=== PATIENT | female | born 1980 | race Two or more races ===

== ENCOUNTER 2016-08-10 23:39 | Emergency (ER) | payer OTHER ==
[~2016-08-10] VITALS: Ht 165.1 cm; Wt 83.9 kg
[2016-08-11] VITALS: BP 140/73
[2016-08-11] MEDS ORDERED: TRAM-29 PO (00:14)
[2016-08-11] MEDS ORDERED: PENI500T PO (00:14)
[2016-08-11] MEDS ORDERED: PROAIR HFA8.5 GM INH (00:15)
--- NOTE | 2016-08-11 00:15 | PHYS DOC ---
Past Medical History Past Medical History: Asthma Past Surgical History: No Surgical History Additional Information: 1/2 PACK/DAY Alcohol Use: Occasionally Drug Use: Marijuana Adult General Chief Complaint Chief Complaint: Toothache HPI HPI Patient is a 36 year old female who presents with right maxillary dental pain starting yesterday. The affected tooth broke previously but just started to cause her pain yesterday. She reports that there was a knot above the tooth in the gums, but it drained some today. She denies any fevers. She sees a PCP at [facility]. She does not have a dentist. She also requests a refill of her albuterol inhaler. Review of Systems Review of Systems Constitutional: Denies fever or chills. [] Eyes: Denies change in visual acuity, redness, or eye pain. [] HENT: Denies ear pain, nasal congestion or sore throat. Reports dental pain and swelling. Respiratory: Denies cough or shortness of breath. [] Integument: Denies rash or skin lesions. [] Neurologic: Denies headache, focal weakness or sensory changes. [] Allergies Allergies Allergies Coded Allergies Type Severity Reaction Last Updated Verified hydrocodone Allergy Intermediate Itching 08/11/16 Yes Physical Exam Physical Exam Constitutional: Well developed, well nourished, no acute distress, non-toxic appearance. [] HENT: Normocephalic, atraumatic, bilateral external ears normal, oropharynx moist, no oral exudates, nose normal. Bilateral TMs without erythema or bulging. There is no posterior pharyngeal erythema or tonsillar edema. Tooth #4 is broken and tender without gingival edema or abscess. Eyes: PERRLA, EOMI, conjunctiva normal, no discharge. [] Skin: Warm, dry, no erythema, no rash. [] Neurologic: Alert and oriented X 3, normal motor function, normal sensory function, no focal deficits noted. [] Psychologic: Affect normal, judgement normal, mood normal. [] Current Patient Data Vital Signs Vital Signs Date Time Temp Pulse Resp B/P Pulse Ox O2 Delivery O2 Flow Rate FiO2 08/11/16 00:00 98.2 72 18 99 Room Air 98.2 EKG EKG [] Radiology/Procedures Radiology/Procedures [] Course & Med Decision Making Course & Med Decision Making Pertinent Labs and Imaging studies reviewed. (See chart for details) [] Dragon Disclaimer Dragon Disclaimer This electronic medical record was generated, in whole or in part, using a voice recognition dictation system. Departure Departure Impression: Primary Impression: Dentalgia Disposition: 01 HOME, SELF-CARE Condition: STABLE Referrals: UNKNOWN PCP NAME (PCP) Patient Instructions: Dental Pain, [id number] Additional Instructions: Please complete all of the prescribed antibiotics, even if your tooth is better. Please take the prescribed pain medication as directed. Do not drive or operate heavy machinery while taking pain medication. Please follow up with the dentist of your choice as soon as possible regarding your tooth. Return to the emergency department if you have any new or concerning symptoms. Scripts Albuterol Sulfate (Proair Hfa Inhaler)8.5 Gm Hfa.aer.ad1 Puff INH Q4HRS PRN SHORTNESS OF BREATH #1 INHALER Prov:BELKIS MEDEL 08/11/16 Tramadol Hcl (Ultram)50 Mg Xkyiix20 Mg PO Q6H PRN PAIN #20 TAB Prov:BELKIS MEDEL 08/11/16 Penicillin V Potassium 500 Mg Tablet1 Tab PO TID #30 TAB Prov:BELKIS MEDEL 08/11/16 BELKIS MEDEL Aug 11, 2016 00:15
[2016-08-12] MEDS ORDERED: OXYC-323 PO (04:23)
[2016-08-12] MEDS ORDERED: ONDA4TAB7 PO (04:23)
== END 2016-08-11 00:23 | disposition home or self-care (01) ==
LOC: ER 23:39
DX: K08.89 Other specified disorders of teeth and supporting structures (principal); J45.909 Unspecified asthma, uncomplicated; F12.10 Cannabis abuse, uncomplicated; F17.200 Nicotine dependence, unspecified, uncomplicated; Z88.5 Allergy status to narcotic agent
CPT/HCPCS: 99283

== ENCOUNTER 2016-08-12 03:44 | Emergency (ER) | payer OTHER ==
[~2016-08-12] VITALS: Ht 165.1 cm; Wt 83.9 kg
[~2016-08-12 03:44] MED LIST: PENI500T PO; PROAIR HFA8.5 GM INH; TRAM-29 PO
[2016-08-12 03:55] VITALS: BP 131/66
[2016-08-12] MEDS ORDERED: ONDA4TAB7 PO (04:23)
[2016-08-12] MEDS ORDERED: OXYC-323 PO (04:23)
--- NOTE | 2016-08-12 04:24 | PHYS DOC ---
Past Medical History Past Medical History: Asthma Past Surgical History: No Surgical History Alcohol Use: Occasionally Drug Use: Marijuana Adult General Chief Complaint Chief Complaint: DENTAL PROBLEM HPI HPI This 36-year-old female who has a dental caries to her right most posterior molar area who awoke today with some mild swelling to her right upper jaw. She states she was seen yesterday and given a prescription for tramadol and penicillin for which she has been taking with minimal to no relief. She states she tried to follow-up with a dentist but states she could not be seen until she finishes her antibiotic prescription. She does states she has mild nausea now with no vomiting. She denies any fever or chills. She denies any shortness of breath or difficulty swallowing. Patient speaking in complete sentences and in no distress at this time. Review of Systems Review of Systems Constitutional: Denies fever or chills [] Eyes: Denies change in visual acuity, redness, or eye pain [] HENT: Denies nasal congestion or sore throat [] Respiratory: Denies cough or shortness of breath [] Cardiovascular: No additional information not addressed in HPI [] GI: Denies abdominal pain, nausea, vomiting, bloody stools or diarrhea [] : Denies dysuria or hematuria [] Musculoskeletal: Denies back pain or joint pain [] Integument: Denies rash or skin lesions [] Neurologic: Denies headache, focal weakness or sensory changes [] Endocrine: Denies polyuria or polydipsia [] Current Medications Current Medications Current Medications Medications (Trade) Dose Ordered Sig/Nury Start Time Stop Time Status Last Admin Dose Admin Acetaminophen/ Hydrocodone Bitart (Lortab 5/325) 1 tab 1X ONCE 08/12/16 04:30 08/12/16 04:30 DC Oxycodone/ Acetaminophen (Percocet 5/325) 1 tab 1X ONCE 08/12/16 04:45 08/12/16 04:45 DC 08/12/16 04:38 1 TAB Allergies Allergies Allergies Coded Allergies Type Severity Reaction Last Updated Verified hydrocodone Allergy Intermediate Itching 08/11/16 Yes Physical Exam Physical Exam Constitutional: Well developed, well nourished, no acute distress, non-toxic appearance. [] HENT: Normocephalic, atraumatic, bilateral external ears normal, oropharynx moist, no oral exudates, dental caries to the right upper most posterior molar, no abscess is seen, nose normal. [] Eyes: PERRLA, EOMI, conjunctiva normal, no discharge. [] Neck: Normal range of motion, no tenderness, supple, no stridor. [] Cardiovascular:Heart rate regular rhythm, no murmur [] Lungs & Thorax: Bilateral breath sounds clear to auscultation [] Abdomen: Bowel sounds normal, soft, no tenderness, no masses, no pulsatile masses. [] Skin: Warm, dry, no erythema, no rash. [] Back: No tenderness, no CVA tenderness. [] Extremities: No tenderness, no cyanosis, no clubbing, ROM intact, no edema. [] Neurologic: Alert and oriented X 3, normal motor function, normal sensory function, no focal deficits noted. [] Psychologic: Affect normal, judgement normal, mood normal. [] Current Patient Data Vital Signs Vital Signs Date Time Temp Pulse Resp B/P Pulse Ox O2 Delivery O2 Flow Rate FiO2 08/12/16 04:38 99 Room Air 08/12/16 03:55 98.5 76 16 98.5 EKG EKG [] Radiology/Procedures Radiology/Procedures [] Course & Med Decision Making Course & Med Decision Making Pertinent Labs and Imaging studies reviewed. (See chart for details) This 28-year-old female with continued caries to the right most posterior molar of the upper jaw will be discharged with a short course of [place] and Zofran with strict instructions to continue taking her penicillin antibiotic and to follow closely with the dentist. No indication at this time to do any workup. She was discharged without incident. Dragon Disclaimer Dragon Disclaimer This electronic medical record was generated, in whole or in part, using a voice recognition dictation system. Departure Departure Impression: Primary Impression: Dental caries Disposition: 01 HOME, SELF-CARE Admitting Physician: Other Condition: STABLE Referrals: UNKNOWN PCP NAME (PCP) Patient Instructions: Dental Abscess Additional Instructions: Please take your pain medication as prescribed and finish your antibiotic course. Follow up with your dentist as discussed. Return to the ER if you develop any worsening swelling or difficulty breathing. Scripts Oxycodone/Apap 5-325 (Percocet 5-325 Mg Tablet)1 Each Tablet1 Tab PO PRN Q6HRS PRN PAIN #6 TAB Ref 0 Prov:TONY GABRIEL DO 08/12/16 Ondansetron Hcl (Zofran)4 Mg Tablet4 Mg PO BID PRN NAUSEA/VOMITING #10 TAB Prov:TONY GABRIEL DO 08/12/16 TONY GABRIEL DO Aug 12, 2016 04:24
[2016-08-12] MEDS ORDERED: HYDROCODONE/APAP 5/325MG TABLET. PO ONE (04:30)
[2016-08-12] MEDS ORDERED: OXYCODONE/APAP 5/325 TABLET. PO ONE (04:45)
== END 2016-08-12 04:39 | disposition home or self-care (01) ==
LOC: ER 03:44
DX: K02.9 Dental caries, unspecified (principal); J45.909 Unspecified asthma, uncomplicated; F12.10 Cannabis abuse, uncomplicated
CPT/HCPCS: 99283

== ENCOUNTER 2017-09-28 02:36 | Emergency (ER) | payer OTHER ==
[2017-09-28] MEDS: IPRATRPIUM/ALBUTEROL 0.5/2.5MG 3 ML NEBU. NEB ×2 (02:46→03:29)
[2017-09-28] MEDS: methylPREDNISolone SOD SUCC PF 125 MG/2 ML VIAL. IV (04:12)
[2017-09-28] MEDS: IV NORMAL SALINE 1000ML BAG 1,000 ML IV (04:13)
== END 2017-09-28 06:00 | disposition home or self-care (01) ==
LOC: ER 02:36
DX: J45.909 Unspecified asthma, uncomplicated (principal); F12.10 Cannabis abuse, uncomplicated; Z88.5 Allergy status to narcotic agent
CPT/HCPCS: 94640; 96374; 99284-25; J2930; J7030; J7620

== ENCOUNTER 2019-01-23 00:56 | Emergency (ER) | payer OTHER ==
[~2019-01-23] VITALS: Ht 165.1 cm; Wt 90.7 kg
[~2019-01-23 00:56] MED LIST changes: +ALBU2.5V8 INH; +ONDA4TAB7 PO; +OXYC1TAB15 PO; +PRED20TA PO; -PROAIR HFA8.5 GM INH; -TRAM-29 PO; +TRAM-48 PO
[2019-01-23 01:15] VITALS: BP 126/71
[2019-01-23] MEDS ORDERED: ALBU2.5V5 NEB (01:39)
[2019-01-23] MEDS ORDERED: ALBU2.5V8 INH (01:39)
[2019-01-23] MEDS ORDERED: PRED20TA PO (01:39)
--- NOTE | 2019-01-23 01:39 | PHYS DOC ---
Past Medical History Past Medical History: Asthma Past Surgical History: No Surgical History Alcohol Use: Occasionally Drug Use: Marijuana Adult General Chief Complaint Chief Complaint: Congestion HPI HPI Patient is a 38 year old [f__sex] who presents with [] Review of Systems Review of Systems Constitutional: Denies fever or chills [] Eyes: Denies change in visual acuity, redness, or eye pain [] HENT: Denies nasal congestion or sore throat [] Respiratory: Denies cough or shortness of breath [] Cardiovascular: No additional information not addressed in HPI [] GI: Denies abdominal pain, nausea, vomiting, bloody stools or diarrhea [] : Denies dysuria or hematuria [] Musculoskeletal: Denies back pain or joint pain [] Integument: Denies rash or skin lesions [] Neurologic: Denies headache, focal weakness or sensory changes [] Endocrine: Denies polyuria or polydipsia [] All other systems were reviewed and found to be within normal limits, except as documented in this note. Allergies Allergies Allergies Coded Allergies Type Severity Reaction Last Updated Verified hydrocodone Allergy Intermediate Itching 08/11/16 Yes Physical Exam Physical Exam Constitutional: Well developed, well nourished, no acute distress, non-toxic appearance. [] HENT: Normocephalic, atraumatic, bilateral external ears normal, oropharynx moist, no oral exudates, nose normal. [] Eyes: PERRLA, EOMI, conjunctiva normal, no discharge. [] Neck: Normal range of motion, no tenderness, supple, no stridor. [] Cardiovascular:Heart rate regular rhythm, no murmur [] Lungs & Thorax: Bilateral breath sounds clear to auscultation [] Abdomen: Bowel sounds normal, soft, no tenderness, no masses, no pulsatile masses. [] Skin: Warm, dry, no erythema, no rash. [] Back: No tenderness, no CVA tenderness. [] Extremities: No tenderness, no cyanosis, no clubbing, ROM intact, no edema. [] Neurologic: Alert and oriented X 3, normal motor function, normal sensory function, no focal deficits noted. [] Psychologic: Affect normal, judgement normal, mood normal. [] Current Patient Data Vital Signs Vital Signs Date Time Temp Pulse Resp B/P (MAP) Pulse Ox O2 Delivery O2 Flow Rate FiO2 01/23/19 01:15 98.2 87 18 126/71 (89) 99 Room Air 98.2 EKG EKG [] Radiology/Procedures Radiology/Procedures [] Course & Med Decision Making Course & Med Decision Making Pertinent Labs and Imaging studies reviewed. (See chart for details) [] Dragon Disclaimer Dragon Disclaimer This electronic medical record was generated, in whole or in part, using a voice recognition dictation system. Departure Departure Impression: Primary Impression: URI (upper respiratory infection) Additional Impressions: History of asthma Medication refill Disposition: HOME, SELF-CARE Condition: STABLE Referrals: UNKNOWN PCP NAME (PCP) Patient Instructions: Medication Refill, Emergency Department, Upper Respiratory Infection, Adult, [id number] Scripts Albuterol Sulfate (ALBUTEROL SULFATE NEB SOLN) 2.5 Mg/3 Ml Vial.neb 1 VIAL NEB PRN Q4HRS PRN for WHEEZING, #50 VIAL Prov: WILMAR VILLANUEVA DO 01/23/19 Prednisone (PREDNISONE) 20 Mg Tablet 2 TAB PO DAILY, #8 TAB Prov: WILMAR VILLANUEVA DO 01/23/19 Albuterol Sulfate (Proair Hfa) 8.5 Gm Hfa.aer.ad 1 PUFF INH PRN Q6HRS PRN for WHEEZING, #1 INHALER Prov: WILMAR VILLANUEVA DO 01/23/19 Problem Qualifiers Primary Impression: URI (upper respiratory infection) URI type: unspecified URI Qualified Codes: J06.9 - Acute upper respiratory infection, unspecified WILMAR VILLANUEVA DO Jan 23, 2019 01:39
[2019-01-23] MEDS ORDERED: DEXAMETHASONE 4 MG TABLET PO ONE (02:00)
== END 2019-01-23 02:04 | disposition home or self-care (01) ==
LOC: ER 00:56
DX: J06.9 Acute upper respiratory infection, unspecified (principal); Z76.0 Encounter for issue of repeat prescription; J45.909 Unspecified asthma, uncomplicated; Z88.5 Allergy status to narcotic agent
CPT/HCPCS: 99283; J8540

== ENCOUNTER 2021-05-10 08:40 | Emergency (ER) | payer OTHER ==
[~2021-05-10] VITALS: Ht 165.1 cm; Wt 79.3 kg
[~2021-05-10 08:40] MED LIST changes: +ALBU2.5V5 NEB
[2021-05-10] MEDS ORDERED: IV NORMAL SALINE 1000ML BAG 1,000 ML IV ONE (09:30)
[2021-05-10] MEDS ORDERED: DEXAMETHASONE SOD PHOS 4 MG/ML VIAL IVP ONE (09:30)
[2021-05-10] MEDS ORDERED: CLINDAMYCIN 600MG PREMIX 50 ML IV ONE (09:30)
--- NOTE | 2021-05-10 09:38 | PHYS DOC ---
Past Medical History Past Medical History: Asthma Past Surgical History: Other Additional Past Surgical Histo: OVARIAN CYST Smoking Status: Current Some Day Smoker Alcohol Use: Occasionally Drug Use: Marijuana General Adult EDM: Chief Complaint: ABSCESS HPI: HPI: 41 year old female presents with left cheek pain. She felt that she had a flu- like illness on Wednesday and started having left cheek pain on Wednesday. On she started having an associated yellow discharge from her nose. The pain is located over her left maxillary sinus and radiated into her jaw, nose and left orbit. Her pain has continued to get worse and and is described as a pressure-like pain over her cheek and a sharp pain sometimes over her right orbit. She has tried cold compresses over her cheek and shower steam, which have not relieved her pain. She reports associated fever and nausea when the pain is at it's worst. Review of Systems: Review of Systems: Constitutional: Reports fever and chills Eyes: Denies redness. Reports eye pain HENT: Reports nasal congestion. Denies sore throat Respiratory: Denies cough or shortness of breath Cardiovascular: Denies chest pain or palpitations GI: Denies abdominal pain or vomiting. Reports nausea. : Denies dysuria or hematuria Musculoskeletal: Denies back pain or joint pain Integument: Denies rash or skin lesions Neurologic: Denies focal weakness or sensory changes. Reports headache Complete systems were reviewed and found to be within normal limits, except as documented in this note. Heart Score: C/O Chest Pain: N/A Allergies: Allergies: Allergies Coded Allergies Type Severity Reaction Last Updated Verified hydrocodone Allergy Intermediate Itching 08/11/16 Yes Physical Exam: PE: Constitutional: Well developed, well nourished, mild distress, non-toxic appearance HENT: Mild erythema and boggy mucosa in her left nasal cavity, but normal on the right side. Poor left maxillary dentition with a missing first premolar in that region. There is an abscess adjacent to the root of her left maxillary canine tooth, appreciated on elevation of her upper lip. Tenderness to palpation over her left maxillary sinus. Eyes: PERRL, EOMI, conjunctiva normal, no discharge Neck: Normal range of motion, no tenderness, supple Lungs & Thorax: No respiratory distress, equal chest rise and fall. Lungs clear to auscultation bilaterally. Abdomen: Soft, no tenderness Skin: Warm, dry, no erythema, no rash Back: No tenderness, no CVA tenderness Extremities: No tenderness, ROM intact, no edema Neurologic: Alert and oriented X 3, normal motor function, normal sensory function, no focal deficits noted Psychologic: Affect normal, judgment normal Current Patient Data: Vital Signs: Vital Signs Date Time Temp Pulse Resp B/P (MAP) Pulse Ox O2 Delivery O2 Flow Rate FiO2 05/10/21 08:55 98.4 92 16 143/82 (102) 96 Room Air 98.4 EKG: EKG: [] Radiology/Procedures: Radiology/Procedures: PROCEDURE: CT MAXILLOFACIAL W/CONTRAST Exam performed: CT maxillofacial. Indication: Left Maxillary pain and swelling. Date of service: 05/10/2021,Comparison: None available Technique: Contiguous acquisitions are obtained through the maxillofacial structures without IV contrast. Coronal reformatted images are obtained and reviewed. Findings: There is diffuse opacification of the left maxillary sinus. Mucoperiosteal thickening seen in the right maxillary, bilateral ethmoid and left frontal sinuse is noted. The bony orbital margins and the intraocular contents are bilaterally symmetric and unremarkable. There is obscuration of the left ostiomeatal complex, the right ostiomeatal complexe is preserved. Nasal bones and zygomatic arches are preserved.No abnormal fluid collections or hematoma formation seen. There is diffuse hazy groundglass opacity with thickening of the right frontal bone without cortical destruction.The visualized portion of the brain is normal. Impression: 1. Acute left maxillary sinus disease with chronic pansinusitis. 2. 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 Correlate clinically. PQRS Compliance Statement: One or more of the following individualized dose reduction techniques were utilized for this examination: 1. Automated exposure control 2. Adjustment of the mA and/or kV according to patient size 3. Use of iterative reconstruction technique Electronically signed by: Radha Ludwig MD (05/10/2021 12:45 PM) [facility] Course & Med Decision Making: Course & Med Decision Making Pertinent Labs and Imaging studies reviewed. (See chart for details) 41 year old female presents with left cheek pain radiating to her teeth, nose, and eye. On physical examination, she was found to have an abscess adjacent to her maxillary canine tooth on the left. A maxillofacial CT was acquired to view her abscess and assess for spread of infection and showed sinusitis of the left maxillary sinus. She received dexamethasone and antibiotics to address inflammation and infection. Analgesia was addressed with toradol. A CBC, CMP, Lactic acid, Magnesium, and U/A were obtained to evaluate for infection and sepsis. See Disclaimer: See Disclaimer: This electronic medical record was generated, in whole or in part, using a voice recognition dictation system. Departure Departure Impression: Primary Impression: Sinusitis, acute maxillary Qualified Codes: J01.00 - Acute maxillary sinusitis, unspecified Additional Impression: Periapical abscess Disposition: HOME / SELF CARE / HOMELESS Condition: STABLE Referrals: NO PCP (PCP) FELICIA STEPHENSON MD Patient Instructions: Dental Abscess, Sinusitis, [id number] Additional Instructions: Please follow with dentist for further assessment and treatment of your dental pain. Use over the counter Ibuprofen in addition to prescribed pain medication. Scripts Amoxicillin/Potassium Clav (AUGMENTIN 875-125 TABLET) 1 Each Tablet 1 TAB PO BID for 10 Days, #20 TAB Prov: WILMAR VILLANUEVA DO 05/10/21 Chlorhexidine Gluconate (PERIDEX) 15 Ml Mouthwash 15 ML PO BID for 10 Days, #473 ML 0 Refills Prov: WILMAR VILLANUEVA DO 05/10/21 Tramadol Hcl (TRAMADOL HCL) 50 Mg Tablet 50 MG PO Q6HRS PRN for PAIN, #14 TAB Take each tablet with one (1) regular strength Tylenol 325mg Prov: WILMAR VILLANUEVA DO 05/10/21 Prednisone (PREDNISONE) 20 Mg Tablet 2 TAB PO DAILY, #10 TAB Prov: WILMAR VILLANUEVA DO 05/10/21 WILMAR VILLANUEVA DO May 10, 2021 09:38
[2021-05-10] MEDS ORDERED: CONTRAST GIVEN. MC PRN (09:45)
[2021-05-10] MEDS ORDERED: IOHEXOL 300 MG/ML 100ML VIAL. IV ONE (09:45)
[2021-05-10] MEDS ORDERED: KETOROLAC 30 MG/ML VIAL. IVP ONE (09:45)
[2021-05-10 10:36] LABS: BASO % 1 % (0-3); EOS # 0.1 x10^3/uL (0.0-0.7); EOS % 1 % (0-3); HEMOGLOBIN 13.4 g/dL (12.0-15.5); LYMPH # 1.9 x10^3/uL (1.0-4.8); LYMPH % 20 % (24-48); MEAN CORPUSCULAR HEMOGLOBIN 29 pg (25-35); MEAN CORPUSCULAR HGB CONC 34 g/dL (31-37); MEAN CORPUSCULAR VOLUME 85 fL (79-100); MONO # 0.9 x10^3/uL (0.0-1.1); MONO % 9 % (0-9); NEUT # 6.7 x10^3/uL (1.8-7.7); NEUT % 69 % (31-73); PLATELET COUNT 207 x10^3/uL (140-400); RED CELL DISTRIBUTION WIDTH 14.9 % (11.5-14.5); WHITE BLOOD COUNT 9.7 x10^3/uL (4.0-11.0)
[2021-05-10 10:46] LABS: CALCIUM 8.1 mg/dL (8.5-10.1); CREATININE 0.7 mg/dL (0.6-1.0); GFR 91.3; POTASSIUM 3.8 mmol/L (3.5-5.1)
[2021-05-10 10:52] LABS: ALBUMIN 3.5 g/dL (3.4-5.0); ALBUMIN/GLOBULIN RATIO 0.6 (1.0-1.7); MAGNESIUM 2.3 mg/dL (1.8-2.4); TOTAL BILIRUBIN 0.4 mg/dL (0.2-1.0); TOTAL PROTEIN 9.2 g/dL (6.4-8.2)
[2021-05-10 12:12] LABS: BILIRUBIN,URINE NEGATIVE (NEG); CLARITY,URINE CLEAR; COLOR,URINE YELLOW; NITRITE,URINE NEGATIVE (NEG); PROTEIN,URINE 30 mg/dL (NEG-TRACE); UROBILINOGEN,URINE 0.2 mg/dL (0.2 mg/dL)
[2021-05-10 12:25] LABS: BACTERIA,URINE FEW /HPF (0-FEW)
--- NOTE | 2021-05-10 12:47 | RAD ---
Exam performed: CT maxillofacial. Indication: Left Maxillary pain and swelling. Date of service: 05/10/2021,Comparison: None available Technique: Contiguous acquisitions are obtained through the maxillofacial structures without IV contr ast. Coronal reformatted images are obtained and reviewed. Findings: There is diffuse opacification of the left maxillary sinus. Mucoperiosteal thickening seen in the rig ht maxillary, bilateral ethmoid and left frontal sinuse is noted. The bony orbital margins and the i ntraocular contents are bilaterally symmetric and unremarkable. There is obscuration of the left osti omeatal complex, the right ostiomeatal complexe is preserved. Nasal bones and zygomatic arches are preserved.No abnormal fluid collections or hematoma formation seen. There is diffuse hazy groundglass opacity with thickening of the right frontal bone without cortical destruction.The visualized portio n of the brain is normal. Impression: 1. Acute left maxillary sinus disease with chronic pansinusitis. 2. 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 Correlate clinically. PQRS Compliance Statement: One or more of the following individualized dose reduction techniques were utilized for this examinat ion: 1. Automated exposure control 2. Adjustment of the mA and/or kV according to patient size 3. Use of iterative reconstruction technique Electronically signed by: Radha Ludwig MD (05/10/2021 12:45 PM) [facility]
[2021-05-10] MEDS ORDERED: AMOX1TAB61 PO (13:49)
[2021-05-10] MEDS ORDERED: CHLO15MO2 PO (13:49)
[2021-05-10] MEDS ORDERED: TRAM50TA PO (13:49)
[2021-05-10] MEDS ORDERED: PRED20TA PO (13:49)
[2021-05-10 14:20] VITALS: BP 117/66
== END 2021-05-10 14:30 | disposition home or self-care (01) ==
LOC: ER 08:40
DX: J01.00 Acute maxillary sinusitis, unspecified (principal); K04.7 Periapical abscess without sinus; J45.909 Unspecified asthma, uncomplicated; F17.200 Nicotine dependence, unspecified, uncomplicated; Z88.5 Allergy status to narcotic agent
CPT/HCPCS: 36415; 70487; 80053; 81001; 81025; 83605; 83735; 85025; 96365; 96375; 99285; J1100; J1885; J3490; J7030; Q9967

== ENCOUNTER 2021-05-13 10:00 | Emergency (ER) | payer OTHER ==
[~2021-05-13] VITALS: Ht 165.1 cm; Wt 81.0 kg
[~2021-05-13 10:00] MED LIST changes: +AMOX1TAB61 PO; +CHLO15MO2 PO; +TRAM50TA PO
[2021-05-13 10:15] VITALS: BP 145/82
[2021-05-13] MEDS ORDERED: ONDA4TAB12 PO (10:36)
[2021-05-13] MEDS ORDERED: DOXY100T PO (10:36)
--- NOTE | 2021-05-13 10:43 | PHYS DOC ---
Past Medical History Past Medical History: Asthma (MYRNA REYEZ APRN) Past Surgical History: Other Additional Past Surgical Histo: OVARIAN CYST (MYRNA REYEZ APRN) Smoking Status: Current Every Day Smoker Alcohol Use: Occasionally Drug Use: Marijuana (MYRNA REYEZ APRN) General Adult EDM: Chief Complaint: MULTIPLE COMPLAINTS HPI: HPI: Patient is a 41-year-old female who presents to the emergency department with nausea, vomiting and diarrhea. Patient was seen in this emergency department on Wednesday and diagnosed with sinusitis after receiving a CT of her maxillary sinuses. Patient reports that she got discharged home with pain medication, antibiotic and steroid. She states that she got nauseous after taking BP medication, it appears that patient was discharged with tramadol. She states that she has been having nausea, vomiting and diarrhea after taking the Augmenti n and the prednisone. Patient denies any dental pain, dental abscess, fevers, difficulty swallowing or difficulty breathing. She is reporting yellow nasal drainage and facial pressure. She states that she had to discontinue the antibiotic yesterday because of the vomiting. Patient's vital signs are stable, she is afebrile in no acute distress. (MYRNA REYEZ APRN) Review of Systems: Review of Systems: Constitutional: See HPI HENT: See HPI Respiratory: See HPI GI: See HPI (MYRNA REYEZ APRN) Heart Score: C/O Chest Pain: N/A Risk Factors: Risk Factors: DM, Current or recent (<one month) smoker, HTN, HLP, family history of CAD, obesity. Risk Scores: Score 0 - 3: 2.5% MACE over next 6 weeks - Discharge Home Score 4 - 6: 20.3% MACE over next 6 weeks - Admit for Clinical Observation Score 7 - 10: 72.7% MACE over next 6 weeks - Early Invasive Strategies (MYRNA REYEZ APRN) Allergies: Allergies: Allergies Coded Allergies Type Severity Reaction Last Updated Verified hydrocodone Allergy Intermediate Itching 08/11/16 Yes (MYRNA REYEZ APRN) Physical Exam: PE: Constitutional: Well developed, well nourished, no acute distress, non-toxic appearance. [] HENT: Normocephalic, atraumatic, bilateral external ears normal, uvula midline, no trismus, no phonation changes, no oropharyngeal edema, no dental abscess visualized, several areas of dental decay/caries and missing teeth, pain with palpation to frontal, ethmoid and maxillary sinuses, yellow nasal drainage noted, oropharynx moist, no oral exudates Eyes: PERRL, EOMI, conjunctiva normal, no discharge. [] Neck: Normal range of motion, no tenderness, supple, no stridor. [] Cardiovascular: Normal peripheral perfusion Lungs & Thorax: Bilateral breath sounds clear to auscultation [] Abdomen: Bowel sounds normal, soft, no tenderness, no masses, no pulsatile masses. [] Skin: Warm, dry, no erythema, no rash. [] Back: Normal range of motion Extremities: No tenderness, no cyanosis, no clubbing, ROM intact, no edema. [] Neurologic: Alert and oriented X 3, normal motor function, normal sensory function, no focal deficits noted. [] Psychologic: Affect normal, judgement normal, mood normal. [] (MYRNA REYEZ APRN) EKG: EKG: [] (MYRNA REYEZ APRN) Radiology/Procedures: Radiology/Procedures: [] (MYRNA REYEZ APRN) Course & Med Decision Making: Course & Med Decision Making Pertinent Labs and Imaging studies reviewed. (See chart for details) [] Patient presents to the emergency department for yellow nasal drainage and facial pressure. Patient was seen on Wednesday and had a CT of her maxillary sinuses and was diagnosed with sinusitis. She was discharged home with tramadol, Augmentin and prednisone. Patient reports that after taking his medication she became nauseous and started having vomiting and diarrhea. Patient states that she stopped the medications yesterday. Patient is in no acute distress, she is afebrile, vital signs are stable. Patient is not having any tenderness to her abdomen, fevers, dental pain, difficulty breathing. I reviewed patient's chart and she had a CT of her maxillary sinuses performed on the Wednesday and the radiologist read pansinusitis, no abscess was mentioned in the report. Patient's lab work at that time was also unremarkable. Patient is not having any vomiting while in the ER. Patient will be discharged home adv ised to discontinue the Augmentin and start doxycycline, continue prednisone, take ibuprofen and naproxen and tramadol if needed. Patient advised to eat with the medications as they do cause GI upset. Patient advised to follow-up with her primary care provider. I discussed with patient all findings and diagnostic testing as well as the need to follow-up with PCP for further evaluation and treatment or return to the ER if any new or worsening symptoms. Strict return precautions were also discussed at length. Patient voiced understanding and agreement with the plan. Patient is hemodynamically stable at the time of disposition. (MYRNA REYEZ APRN) Course & Med Decision Making I was the Attending physician on the above date of service of this patient. This patient was evaluated, examined, treated, and dispositioned from the emergency department by the mid-level practitioner. Although I was working at the time , no assistance was requested. Electronically signed, Ana Barahona DO (ANA BARAHONA DO) See Disclaimer: Dragharriet Disclaimer: This electronic medical record was generated, in whole or in part, using a voice recognition dictation system. (MYRNA REYEZ APRN) Departure Departure Impression: Primary Impression: Sinusitis Qualified Codes: J01.90 - Acute sinusitis, unspecified Disposition: HOME / SELF CARE / HOMELESS Condition: GOOD Referrals: NO PCP (PCP) Patient Instructions: Sinusitis Additional Instructions: You are seen in the emergency department for nausea, vomiting and diarrhea after starting tramadol, Augmentin and prednisone. For your sinus infection you are being changed to doxycycline, please start and finish this completely. Please discontinue the Augmentin. Doxycycline may cause diarrhea but should not cause nausea/vomiting. Unfortunately many medications to treat sinusitis may cause GI upset. You can continue taking the prednisone but make sure you eat with it as it may cause GI upset. For pain you can take ibuprofen or naproxen or Tylenol. For your severe pain you can take tramadol but please be aware that this can cause GI upset as it is a narcotic medication. You are being discharged home with nausea medication that you can take as needed. Please follow-up with your primary care provider tomorrow regarding your ER visit. You may also benefit from a intranasal steroid like Flonase [id number]. Please return to the emergency department if you develop shortness of breath, intractable nausea or vomiting, high fevers refractory to treatment, severe headache, confusion, neck pain or stiffness or any new or worsening concerns. Scripts Doxycycline Hyclate (DOXYCYCLINE HYCLATE) 100 Mg Tablet 1 TAB PO BID for 7 Days, #14 TAB 0 Refills Prov: MYRNA REYEZ APRN 05/13/21 Ondansetron (ONDANSETRON ODT) 4 Mg Tab.rapdis 1 TAB PO PRN Q6-8HRS for 7 Days, #28 TAB 0 Refills Prov: MYRNA REYEZ APRN 05/13/21 MYRNA REYEZ APRN May 13, 2021 10:42 ANA BARAHONA DO May 13, 2021 15:57
== END 2021-05-13 11:30 | disposition home or self-care (01) ==
LOC: ER 10:00
DX: J01.90 Acute sinusitis, unspecified (principal); R11.2 Nausea with vomiting, unspecified; R19.7 Diarrhea, unspecified; F17.200 Nicotine dependence, unspecified, uncomplicated; J45.909 Unspecified asthma, uncomplicated; Z88.5 Allergy status to narcotic agent
CPT/HCPCS: 99283